=== PATIENT | male | born 1985 | race Caucasian/White ===

== ENCOUNTER 2022-06-08 19:29 | Emergency (ER) | payer OTHER ==
[~2022-06-08 19:29] MED LIST: Iopamidol-370 76% 500 ML MDV (1 ML CHARGE) ONE
[2022-06-08 20:26] LABS: Hemoglobin 16.7 g/dL (14.0-18.0); Mean Corpuscular HGB CONC 34.4 g/dL (32.0-36.0); Mean Corpuscular Volume 92.9 fl (78.0-98.0); Mean Platelet Volume 9.3 fL (7.4-10.4); Platelet Count 156 10x3/uL (130-400); RBC Distribution Width 11.6 % (11.5-14.5); Red Blood Cell (RBC) Count 5.23 mill/uL (4.70-6.10); White Blood Cell (WBC) Count 6.8 10x3/uL (4.8-10.8)
[2022-06-08 20:34] LABS: Bilirubin Negative (Negative); Blood, Urine Negative (Negative); Clarity Clear (Clear); Glucose, Urine (Dipstick) Normal (Negative); Ketone, Urine Negative (Negative); Leukocyte Negative Leu/uL (Negative); Nitrite Negative (Negative); Protein, Urine (Dipstick) Negative (Neg-Trace); Urobilinogen Normal mg/dL (Less than 2)
[2022-06-08 20:42] LABS: ALT (SGPT) 18 U/L (8-55); AST (SGOT) 21 U/L (5-34); Albumin 4.7 g/dL (3.5-5.0); Alkaline Phosphatase 79 U/L (40-110); Anion Gap 17 mmol/L (10-20); BUN (Urea Nitrogen) 14 mg/dL (8.9-20.6); Bilirubin, Total 0.5 mg/dL (0.2-1.2); Calc. Creatinine Clearance 0 mL/min (70-130); Calcium 9.9 mg/dL (7.8-10.44); Carbon Dioxide 20 mmol/L (22-29); Chloride 105 mmol/L (98-107); Estimated GFR 75; Globulin 3.3 g/dL (2.4-3.5); Glucose 87 mg/dL (70-105); Lipase 29 U/L (8-78); Potassium 4.4 mmol/L (3.5-5.1); Sodium 138 mmol/L (136-145)
[2022-06-08 20:50] LABS: Lymphocytes 38 % (21-51); MDiff Complete? YES; Monocytes 2 % (0-10); Neutrophil 50 % (42-75); Platelet Morphology Comment Appears Adequate; RBC Morphology Normal; Reactive Lymphocytes 10 % (0-10); Toxic Granulation SLIGHT
[2022-06-08] MEDS ORDERED: Dicyclomine 20 MG TAB ONE (21:14)
[2022-06-08] MEDS ORDERED: Famotidine/PF 20 mg/2ml Vial ONE (21:34)
[2022-06-08] MEDS ORDERED: diphenhydrAMINE 50 MG/ML VIAL ONE (21:34)
[2022-06-08] MEDS ORDERED: predniSONE 20 MG TAB ONE (21:34)
== END 2022-06-08 23:05 | disposition home or self-care (01) ==
LOC: ERS 19:29
DX: R10.9 Unspecified abdominal pain (principal)
CPT/HCPCS: 36415; 74177; 80053; 81003; 83690; 85025; J1200; J7512; S0028